=== PATIENT | male | born 1930 | race Hispanic/Latino ===

== ENCOUNTER → 2019-02-02 | Day surgery (SDC) | payer MEDICARE ==
[2019-01-31 11:04] LABS: BASOPHILS % 0.2 % (0.0-1.0); EOSINOPHILS % 0.2 % (0.0-6.0); HEMATOCRIT 40.8 % (38.2-49.6); HEMOGLOBIN 13.8 g/dL (14.0-18.0); LYMPHOCYTES # (AUTO) 1.5 (1.0-3.2); LYMPHOCYTES % 30.2 % (18.0-39.1); MEAN CORPUSCULAR HGB CONC 33.8 g/dL (31-35); MEAN CORPUSCULAR VOLUME 91.7 fL (81-99); MONOCYTES # (AUTO) 0.3 (0.2-0.8); NEUTROPHILS # (AUTO) 3.1 (2.1-6.9); NEUTROPHILS % 63.4 % (38.7-80.0); PLATELET COUNT 148 x10e3/uL (140-360); RED BLOOD COUNT 4.45 x10e6/uL (4.3-5.7); RED CELL DISTRIBUTION WIDTH 13.8 % (11.7-14.4)
--- NOTE | 2019-01-31 11:51 | Diagnostic Imaging Report ---
EXAMINATION: CHEST 2 VIEWS INDICATION: Pre-operative COMPARISON: None FINDINGS: LINES/TUBES:None LUNGS:The lungs are well-inflated. No focal consolidation or pulmonary edema. Mild left basilar subsegmental atelectasis. PLEURA:No pleural effusion or pneumothorax. MEDIASTINUM:The cardiomediastinal silhouette appears normal in size and shape. Atherosclerotic calcifications of the thoracic aorta. BONES/SOFT TISSUES:No acute osseous injury. ABDOMEN:No free air under the diaphragm. IMPRESSION: No focal pneumonia or pulmonary edema. Signed by: Gee Rowan MD on 01/31/2019 11:47 AM
--- NOTE | 2019-01-31 11:54 | Diagnostic Imaging Report ---
Exam: KUB - 2 views Indication: Preoperative Comparison: None Findings: No radiographically apparent renal calculi. Surgical clips in the pelvis. Radiopaque markers overlying the prostate. Status post cholecystectomy. Severe degenerative changes of the lower lumbar spine. Nonobstructive bowel gas pattern. Free air. The minimally visualized lung bases appear clear. Impression: No radiographically apparent renal calculi. Signed by: Gee Rowan MD on 01/31/2019 11:50 AM
[~2019-02-02] MED LIST: B&O 60MG R/S 60 MG SUPP PR ONE; CEFTRIAXONE SOD 1 GM/NS 50 ML 50 ML IV ONE; FENTANYL CITRATE/PF 100MCG/2 ML INJ ONE; GLYCOPYRROLATE INJ 1MG/ 5 ML SYR ONE; IOPAMIDOL 610MG/1ML 300 MG/ML VIAL IV ONE; LOVASTATIN40 MG; NEXIUM40 MG; PENICILLIN VK PO; SEVOFLURANE INHAL SOLN 250 ML PEN BTL ONE; TERAZOSIN HCL5 MG; VICODIN 5-5001 EACH PO
--- OUTSIDE RECORDS SUMMARY | 2019-02-02 10:14 | XMS REPORT ---
[facility] Address Unknown Phone Unavailable Care Team Providers Care Area Director Name Role Phone CHRISSY MANDEL Unavailable Unavailable Problems This patient has no known problems. Allergies, Adverse Reactions, Alerts This patient has no known allergies or adverse reactions. Medications This patient has no known medications. Results Test Description Test Time Test Comments Text Results Atomic Results Result Comments ABDOMEN-1VIEW (KUB) 2019-01-31 11:49:00 [place] [address] Patient Name: TENA MOODY MR #: [id number] : 1930 Age/Sex: 88/M Req #: [id number] Adm Physician: Ordered by: CHRISSY MANDEL MD Report #: [id number] Location: OR Room/Bed: Procedure: [id number] DX/ABDOMEN-1VIEW (KUB) Exam Date: 01/31/19 Exam Time: 1107 REPORT STATUS: Signed Exam: KUB - 2 views Indication: Preoperative Comparison: None Findings: No radiographically apparent renal calculi. Surgical clips in the pelvis. Radiopaque markers overlying the prostate. Status post cholecystectomy. Severe degenerative changes of the lower lumbar spine. Nonobstructive bowel gas pattern. Free air. The minimally visualized lung bases appear clear. Impression: No radiographically apparent renal calculi. Signed by: Med Rowan MD on 01/31/2019 11:50 AM Dictated By: MED ROWAN MD [id number] Transcribed By: SERGEY on 01/31/191149 COPY TO: CHRISSY MANDEL MD CHEST 2 VIEWS 2019-01-31 11:46:00 [place] [address] Patient Name: TENA MOODY MR #: [id number] : 1930 Age/Sex: 88/M Req #: [id number] Adm Physician: Ordered by: CHRISSY MANDEL MD Report #: [id number] Location: OR Room/Bed: Procedure: [id number] DX/CHEST 2 VIEWS Exam Date: 01/31/19 Exam Time: 1107 REPORT STATUS: Signed EXAMINATION: CHEST 2 VIEWS INDICATION: Pre-operative COMPARISON: None FINDINGS: LINES/TUBES:None LUNGS:The lungs are well-inflated. No focal consolidation or pulmonary edema. Mild left basilar subsegmental atelectasis. PLEURA:No pleural effusion or pneumothorax. MEDIASTINUM:The cardiomediastinal silhouette appears normal in size and shape. Atherosclerotic calcifications of the thoracic aorta. BONES/SOFT TISSUES:No acute osseous injury. ABDOMEN:No free air under the diaphragm. IMPRESSION: No focal pneumonia or pulmonary edema. Signed by: Med Rowan MD on 01/31/2019 11:47 AM Dictated By: MED ROWAN MD [id number] Transcribed By: SERGEY on 01/31/19 114 COPY TO: CHRISSY MANDEL MD
[2019-02-02 15:19] VITALS: BP 185/94
--- NOTE | 2019-03-20 05:34 | Operative Report ---
DATE OF PROCEDURE: 02/02/2019 SURGEON: Doug Mendoza MD PREOPERATIVE DIAGNOSES: 1. Right nephrolithiasis. 2. BPH. POSTOPERATIVE DIAGNOSES: 1. Right nephrolithiasis. 2. BPH. 3. Urethral stricture disease at the bulbar urethra. OPERATION PERFORMED: Note these were all staged procedures as part of multistaged, multistep process in managing the patient's urolithiasis. 1. Right-sided extracorporeal shockwave lithotripsy (separate procedure performed for the stones present in the mid pole and lower pole calices done from separate approach). 2. Cystourethroscopy with dilation of urethral stricture (separate procedure performed for the diagnosis of stricture). 3. Cystourethroscopy with bilateral ureteral catheterization and retrograde ureteropyelography (separate procedure performed for the obstructive BPH). 4. Interpretation of retrograde ureteropyelography. 5. Supervision of fluoroscopy, no radiologist present. ANESTHESIA: General. COMPLICATIONS: None. CLINICAL SUMMARY: Mr. Crow is an 88-year-old man with right nephrolithiasis and BPH and he is brought to the operating room today for the above procedures. He is aware of the risks of bleeding, infection, injury to adjacent structures, need for additional procedures and elected to proceed. OPERATIVE PROCEDURE IN DETAIL: Informed consent was verified. Mr. Crow was properly identified and was taken to the operating room, placed in the lithotripsy table in supine position. Anesthesia was uneventfully begun. The patient's right nephrolithiasis was localized with biplanar fluoroscopy. A total of 3000 shocks were delivered, distributing them between the two stones. Fragmentation was noted of all the areas treated. The patient was then carefully gently repositioned in dorsal lithotomy position with all pressure points well padded. His genitalia were prepared and draped in the usual sterile fashion. The cystoscope sheath with the visual obturator in place was atraumatically inserted into the patient's urethra and it was guided unremarkable distal urethra up to the bulbar region, where there was a stricture. We gently dilated across the stricture, that was calibrated again at approximately 16 to 18-Cameroonian in size and dilating to 22.5-Cameroonian in size. We then passed the unremarkable sphincteric region in the prostate bed, which was relatively open and into the patient's bladder, where panendoscopy revealed no suspicious mucosal lesions, no tumors, no stones, and no diverticula, normally positioned configured ureteral orifices were identified. Trabeculations were noted. An 8-Cameroonian catheter was used to cannulate each ureter and retrograde ureteral pyelograms were performed. Interpretation of retrograde ureteropyelography contrast was instilled in retrograde fashion bilaterally. On the left hand side, I could not visualize any stones. There were no tumors. Unobstructed drainage was observed. Left hand side exhibited a stone that was previously known. No hydronephrosis. The right hand side exhibited filling defects corresponding to the stone debris as well as blood clots from the ESWL, but there was no hydronephrosis, no obstruction. Unobstructed drainage was observed bilaterally fluoroscopically. The patient's bladder was drained. Cystoscope was withdrawn. A belladonna and opium suppository was placed revealing a large prostate that is smooth, nonfluctuant without any nodules. The patient was then uneventfully reversed from anesthesia and taken to recovery room in stable condition. There were no complications during the procedure. The patient tolerated the procedure well. Explicit postoperative instructions were given. PLANS: Plans will be to return the patient to the operating room for left ESWL. Ongoing urological followup is of course a must. Doug Mendoza MD [place]/[facility] /[id number]
== END | disposition home or self-care (01) ==
LOC: OR 09:59
PROVIDERS: ATTEND Urology
DX: N20.0 Calculus of kidney (principal); C61 Malignant neoplasm of prostate; N40.0 Benign prostatic hyperplasia without lower urinary tract symptoms; N35.912 Unspecified bulbous urethral stricture, male; G47.33 Obstructive sleep apnea (adult) (pediatric); E78.5 Hyperlipidemia, unspecified; K21.9 Gastro-esophageal reflux disease without esophagitis; I44.7 Left bundle-branch block, unspecified; Z87.891 Personal history of nicotine dependence
CPT/HCPCS: 36415; 50590; 52281; 71046; 74018; 85025; 93005; C1758; J0696; J3010; J3490; Q9967